=== PATIENT | male | born 1950 | race Caucasian/White ===

== ENCOUNTER 2017-11-16 17:24 | Inpatient (IN) | payer OTHER ==
--- NOTE | 2017-11-16 17:44 | EDPHY ---
H & P Time Seen by Provider: 11/16/17 17:32 HPI/ROS: CHIEF COMPLAINT: Fall HISTORY OF PRESENT ILLNESS: The patient is a 67-year-old male with a history of Parkinson's disease who presents emergency department after having a mechanical fall. The patient was standing on a scale in his kitchen. He stepped off falling to his right side. He struck his head on the counter. He did not lose consciousness. He has mild headache. Patient also struck his right upper leg and hip. Now has moderate to severe pain in his right upper leg. It is worse with movement. He initially had some numbness in his foot but that is resolved. Patient denies chest pain or shortness of breath. No back pain. No abdominal pain. No nausea or vomiting. REVIEW OF SYSTEMS: My complete review of systems is negative except as mentioned in the HPI. Past Medical/Surgical History: Includes Parkinson's disease and hypertension Past surgical history: Hernia repair Social history: The patient drinks alcohol occasionally. No tobacco use Smoking Status: Never smoked Physical Exam: Vitals noted GENERAL: Well-appearing, in no acute distress, alert. HEAD: Patient has a small abrasion and swelling on the right lateral aspect of his head. No crepitus. EYES: PERRLA, EOMI, normal to inspection. ENT: Airway intact, no dental or oral injury, no malocclusion, no hemotympanum , normal external examination. NECK: The trachea is midline. There is no crepitus. The C-spine is nontender. NEXUS criteria is negative (no midline tenderness, no distracting injury, no altered mental status, no recent alcohol use, no focal neurologic deficit). RESPIRATORY: Clear to auscultation bilaterally, no rales, rhonchi or wheezing. There is no crepitus or palpable rib fractures. CVS: Regular rate and rhythm, no rubs, murmurs, or gallops. ABDOMEN: Soft, nontender, nondistended, normal bowel sounds, no bruising or abrasions. Pelvis: Stable. No tenderness palpation. Hips full range of motion. BACK: Normal to inspection, no spinal tenderness, no spinal step off, no notable bruising or abrasions. SKIN: Normal color, warm, dry. No pallor or diaphoresis. EXTREMITIES: Right upper extremity: Atraumatic. No visible signs of trauma. No tenderness palpation. Neurovascular intact distally. Left upper extremity: Atraumatic. No visible signs of trauma. No tenderness palpation. Neurovascular intact distally. Right lower extremity: Patient's hip is in slight flexion with a pillow. Patient has no significant bony tenderness palpation. However, the patient does have disc comfort with rotation of his hip medial and laterally. Patient is neurovascular intact distally. Left lower extremity: Atraumatic. No visible signs of trauma. No tenderness palpation. Neurovascular intact distally. Atraumatic, neurovascularly intact distally in all extremities, pelvis is stable , hips with full range of motion, moves all extremities freely. NEURO/PSYCH: Alert and oriented x 3, GCS 15, flat affect, normal motor sensory exam. Constitutional: Initial Vital Signs Temperature (C) 36.6 C 11/16/17 17:37 Heart Rate 82 11/16/17 17:37 Respiratory Rate 18 11/16/17 17:37 Blood Pressure 153/91 H 11/16/17 17:37 O2 Sat (%) 97 11/16/17 17:37 O2 Delivery Mode Room Air Allergies/Adverse Reactions: No Known Allergies Allergy (Verified 11/16/17 17:36) Home Medications: Medication Instructions Recorded Amlodipine Besylate 5 mg PO DAILY 07/27/11 Aspirin [Aspirin 81mg (*)] 81 mg PO DAILY 11/16/17 Carbidopa/Levodopa 1 each PO TID 11/16/17 [Carbidopa-Levodopa 25-100 Tab] rOPINIRole HCL [Requip] 0.25 mg PO AC 11/16/17 Medical Decision Making - Diagnostics Imaging Results: Imaging Impressions Femur X-Ray 11/16/17 17:45 Impression: Displaced right femoral neck fracture. Right Femur, Two Views History: Pain. Fall. Findings: No other findings for right femoral fracture aside from the displaced right femoral neck fracture seen on the right hip images. Mild underlying degenerative change in the right knee. Impression: Displaced right femoral neck fracture seen on the right hip x-ray. No other findings for fracture in the right femur. Hip X-Ray 11/16/17 17:45 Impression: Displaced right femoral neck fracture. Right Femur, Two Views History: Pain. Fall. Findings: No other findings for right femoral fracture aside from the displaced right femoral neck fracture seen on the right hip images. Mild underlying degenerative change in the right knee. Impression: Displaced right femoral neck fracture seen on the right hip x-ray. No other findings for fracture in the right femur. Chest X-Ray 11/16/17 17:56 Impression: No evidence for acute cardiopulmonary abnormality. ED Course/Re-evaluation: In the emergency department I discussed possible etiologies with the patient. Answered all his questions. An IV was placed. Laboratory studies were obtained. Head CT was ordered. Patient also had a right hip x-ray. Right hip: Patient has a femoral neck fracture on the right. This is displaced. Chest x-ray: No acute disease noted. EKG shows normal sinus rhythm, normal rate, normal axis, normal intervals. There are no ST or T-wave abnormalities. EKG is normal as interpreted by me. CBC chemistry unremarkable. I discussed the case with Dr. Hayden from Orthopedics. He will arrange treatment the patient's femur fracture. I discussed case with Dr. Schmid. He will admit the patient. I discussed the plan with the patient. I answered all his questions. He is aware the plan. He was quite comfortable during his stay in the emergency department. He did not want any pain medication. Differential Diagnosis: My differential includes but is not limited to head contusion, subarachnoid hemorrhage, subdural hematoma, epidural hematoma, spinal injury, right hip fracture, hip dislocation, femur fracture - Data Points Laboratory Results: Laboratory Results 11/16/17 17:47 11/16/17 17:47 11/16/17 11/16/17 11/16/17 17:47 17:47 17:47 WBC 6.30 10^3/uL 10^3/uL (3.80-9.50) RBC 4.65 10^6/uL 10^6/uL (4.40-6.38) Hgb 15.0 g/dL g/dL (13.7-17.5) Hct 43.2 % % (40.0-51.0) MCV 92.9 fL fL (81.5-99.8) MCH 32.3 pg pg (27.9-34.1) MCHC 34.7 g/dL g/dL (32.4-36.7) RDW 12.8 % % (11.5-15.2) Plt Count 250 10^3/uL 10^3/uL (150-400) MPV 9.3 fL fL (8.7-11.7) Neut % (Auto) 67.3 % % (39.3-74.2) Lymph % (Auto) 17.1 % % (15.0-45.0) [place] % (Auto) 10.0 % % (4.5-13.0) Eos % (Auto) 3.7 % % (0.6-7.6) Baso % (Auto) 1.1 % % (0.3-1.7) Nucleat RBC Rel Count 0.0 % % (0.0-0.2) Absolute Neuts (auto) 4.24 10^3/uL 10^3/uL (1.70-6.50) Absolute Lymphs (auto) 1.08 10^3/uL 10^3/uL (1.00-3.00) Absolute Monos (auto) 0.63 10^3/uL 10^3/uL (0.30-0.80) Absolute Eos (auto) 0.23 10^3/uL 10^3/uL (0.03-0.40) Absolute Basos (auto) 0.07 10^3/uL 10^3/uL (0.02-0.10) Absolute Nucleated RBC 0.00 10^3/uL 10^3/uL (0-0.01) Immature Gran % 0.8 % % (0.0-1.1) Immature Gran # 0.05 10^3/uL 10^3/uL (0.00-0.10) PT 13.3 SEC SEC (12.0-15.0) INR 0.99 (0.83-1.16) APTT 32.9 SEC SEC (23.0-38.0) Sodium 136 mEq/L mEq/L (135-145) Potassium 4.2 mEq/L mEq/L (3.5-5.2) Chloride 102 mEq/L mEq/L (97-110) Carbon Dioxide 25 mEq/l mEq/l (22-31) Anion Gap 9 mEq/L mEq/L (8-16) BUN 21 mg/dL mg/dL (7-23) Creatinine 0.7 mg/dL mg/dL (0.7-1.3) Estimated GFR > 60 Glucose 97 mg/dL mg/dL (70-100) Calcium 9.1 mg/dL mg/dL (8.5-10.4) Medications Given: Discontinued Medications Sodium Chloride (Ns) 500 mls @ 0 mls/hr IV EDNOW ONE; Wide Open PRN Reason: Protocol Stop: 11/16/17 18:45 Last Admin: 11/16/17 18:47 Dose: 500 mls Departure - Departure Disposition: [facility] In[facility] Acute Clinical Impression: Femoral neck fracture Qualifiers: Encounter type: initial encounter Fracture type: closed Laterality: right Qualified Code(s): S72.001A - Fracture of unspecified part of neck of right femur, initial encounter for closed fracture Condition: Good
[2017-11-16] MEDS ORDERED: NS 500 ML IV ONE (18:44)
[2017-11-16 19:06] LABS: PLATELET COUNT 250 10^3/uL (150-400)
--- NOTE | 2017-11-16 19:11 | CPEKG ---
Heart Rate: 72 RR Interval: 833 P-R Interval: 172 QRSD Interval: 92 QT Interval: 388 QTC Interval: 425 P Tryon: 86 QRS Tryon: 73 T Wave Tryon: 83 EKG Severity - NORMAL ECG - EKG Impression: SINUS RHYTHM Electronically Signed By: Soraya Gr 16-Nov-2017 22:49:43
[2017-11-16 19:14] LABS: INR 0.99 (0.83-1.16); PROTIME(PATIENT) 13.3 SEC (12.0-15.0)
[2017-11-16] MEDS ORDERED: DEXAMETHASONE 4 MG/ML VIAL IVP ONE (20:40)
[2017-11-16] MEDS ORDERED: TRANEXAMIC ACID 3,000 MG in NS (SYRINGE) 50 ML IRR ONE (20:40)
[2017-11-16] MEDS ORDERED: ceFAZolin 2 GM/SWFI 2 GM/20 ML SYR IVP ONE (20:40)
[2017-11-16] MEDS ORDERED: ROPIVACAINE 0.2% 80 MG, EPINEPHrine 0.2 MG, KETOROLAC TROMETHAMINE 30 MG in SYRINGE 0 ML IU ONE (20:40)
[2017-11-16] MEDS ORDERED: CARBIDOPA/LEVODOPA 25 MG/100 MG TAB PO SCH (22:00)
--- NOTE | 2017-11-16 22:01 | PDGENHP ---
History and Physical History and Physical: CC:RIGHT HIP PAIN AFTER FALL HISTORY: This gentleman comes to the ER by ambulance after a fall today resulting in in bit ability to stand or walk with severe left hip pain. He has Parkinson's disease and has fallen in the past. He tells me that he was trying to weigh himself on a scale today when he tripped over the scale fell landing on his left side. He since any a severe pain in his left hip. There is no pain anywhere else and he does not think he has injured anything else. He did not hit his head lose consciousness. There is no lightheadedness dizziness chest pain palpitations shortness of breath fever symptom or other acute symptom of illness. Patient has no prior fractures other than an arm fracture when he was 11 years old. He does have Parkinson's disease and says that he has noticed gradual progression of trouble with balance and recently has started falling frequently. He has had 3 fairly recent falls prior to today's episode. He does not use a cane or a walker. He says he knows he should be doing something more to protect himself but has been lazy about it. He is on medications for Parkinson's and sees a neurologist within the [facility] system. No recent changes in his medicines. ROS: A COMPREHENSIVE 10 SYSTEM REVIEW REVEALED NO OTHER SIGNIFICANT FINDINGS. THIS DID INCLUDE A STANDARD PERTINENT REVIEW OF ISSUES IMPORTANT FOR PREOPERATIVE HIM PRE ANESTHESIA RISK ASSESSMENT. 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 I HAVE REVIEWED THE LIST AND ORDERED APPROPRIATE MEDICINES. 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 in the ER EXAMINATION: GENERAL: ALERT, ORIENTED, GOOD MENTATION, APPEARS UNCOMFORTABLE BUT OVERALL REASONABLY RELAXED, HE HAS REMARKABLY DECREASED LEAN MUSCLE MASS AND SUBCUTANEOUS FAT, CONSISTENT WITH AT LEAST A MODERATE PROTEIN CALORIE MALNUTRITION, BMI LISTED 20 IN THE CHART SO FAR SKIN: WARM, DRY, GOOD COLOR, NO RASH HEENT: NORMAL NECK: NO MASS OR JVD RESPS: RELAXED LUNGS: CLEAR BREATH SOUNDS HEART: REGULAR, NO MURMUR ABDOMEN: SOFT, NONDISTENDED, NONTENDER, +BS, NO MASS, HIS BLADDER IS DISTENDED WHICH HE SAYS IS COMMON FOR HIM UPPER EXTREMITIES: NORMAL LOWER EXTREMITIES: NO EDEMA, WARM NO BLEEDING OR BRUISING NEUROLOGIC: STRENGTH OR OVERALL GOOD OTHER THAN NOT TESTED IN THE RIGHT LEG, HE DOES MOVE HIS FOOT WITH GOOD STRENGTH NORMAL SPEECH/LANGUAGE, 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, NO FOCAL WEAKNESS; DOES HAVE A PARKINSONIAN TREMOR IV SITE: LOOKS NORMAL LABORATORY DATA: Unremarkable CBC Chem panel and coagulation studies RADIOLOGY STUDIES: I reviewed chest x-ray, hip and femur x-rays done in the ER this evening and my interpretation of the images: Probably some hyper for expansion of his lungs consistent with possible COPD or similar process, nothing acute in the chest; obvious displaced right femoral neck fracture, no other fractures 12 LEAD EKG: Sinus rhythm with otherwise normal EKG ASSESSMENT: -acute femoral neck fracture after fall -gait instability due to Parkinsons with several recent falls -hypertension on medication, with very mild elevated blood pressure at this time -protein calorie malnutrition at least moderate -preoperative anesthesia and surgery risk assessment: At this time there are no issues that would require a delay in surgery or necessitate further diagnostic investigation or change in management before proceeding with surgery. PLANS: -admission to Orthopedics unit -NPO on IV hydration with anticipation of surgery tomorrow -pain management -will continue his Parkinson's medicines and his amlodipine, but will not give him aspirin at this time in the absence of specific indications -for the moment DVT prophylaxis is with 1 dose of subcu heparin tonight, then wait until after surgery we can begin Lovenox -fall risk precautions, physical occupational therapy -anticipate SNF within a few days after surgery I reviewed the patient's case in detail with Dr. Soraya Gr
[2017-11-16] MEDS ORDERED: ONDANSETRON 4 MG/2 ML VIAL IVP PRN (22:52)
[2017-11-16] MEDS ORDERED: OXYCODONE/APAP 5/325 TAB PO PRN (22:52)
[2017-11-16] MEDS ORDERED: ZOLPIDEM TARTRATE 5 MG TAB PO PRN (22:52)
[2017-11-16] MEDS ORDERED: ONDANSETRON DISINTEGRATING 4 MG TAB PO PRN (22:52)
[2017-11-16] MEDS ORDERED: ACETAMINOPHEN 325 MG TAB PO PRN (22:52)
[2017-11-16] MEDS ORDERED: HYDROmorphone HCL/NS 0.5 MG/ML SYR IVP PRN (22:52)
[2017-11-16] MEDS ORDERED: HEPARIN 5,000 UNIT/0.5 ML SYR SC ONE (22:56)
[2017-11-16] MEDS ORDERED: NS 1,000 ML IV SCH (23:00)
[2017-11-16] MEDS: CARBIDOPA/LEVODOPA 25 MG/100 MG TAB PO SCH (23:12)
[2017-11-17] MEDS ORDERED: TRANEXAMIC ACID 3,000 MG/50 ML BAG IRR ONE (05:20)
[2017-11-17 05:21] LABS: PLATELET COUNT 235 10^3/uL (150-400)
[2017-11-17 05:35] LABS: INR 1.08 (0.83-1.16); PROTIME(PATIENT) 14.2 SEC (12.0-15.0)
--- NOTE | 2017-11-17 05:59 | PDANEPAE ---
ANE History of Present Illness Fall with hip fracture ANE Past Medical History - Cardiovascular History Hx Hypertension: Yes - Pulmonary History Hx Oxygen in Use at Home: No Hx Sleep Apnea: No Sleep Apnea Screening Result - Last Documented: Positive - Endocrine History Hx Diabetes: No - Neurological & Psychiatric Hx Neurological / Psychiatric History Comment: Parkinsons ANE Review of Systems Review of Systems: ANE Patient History - Allergies Allergies/Adverse Reactions: No Known Allergies Allergy (Verified 11/16/17 17:36) - Home Medications Home Medications: Amlodipine Besylate 5 mg PO DAILY 07/27/11 [Last Taken 11/16/17] Aspirin [Aspirin 81mg (*)] 81 mg PO DAILY 11/16/17 [Last Taken Unknown] Carbidopa/Levodopa [Carbidopa-Levodopa 25-100 Tab] 1 each PO TID 11/16/17 [Last Taken 11/16/17 12:00] rOPINIRole HCL [Requip] 0.25 mg PO TID 11/16/17 [Last Taken 11/16/17 11:30] - NPO status NPO Since - Liquids (Date): 11/17/17 NPO Since - Liquids (Time): 00:00 NPO Since - Solids (Date): 11/17/17 NPO Since - Solids (Time): 00:00 - Anes Hx Anes Hx: no prior problems - Smoking Hx Smoking Status: Never smoked ANE Labs/Vital Signs - Labs Result Diagrams: 11/17/17 04:30 11/17/17 04:30 - Vital Signs Blood Pressure: 128/83 Heart Rate: 78 Respiratory Rate: 16 O2 Sat (%): 97 Height: 177.8 cm Weight: 65.771 kg ANE Physical Exam - Airway Neck exam: decreased ROM Mallampati Score: Class 2 Mouth exam: poor dentition - Pulmonary Pulmonary: no respiratory distress - Cardiovascular Cardiovascular: regular rate and rhythym - ASA Status ASA Status: III ANE Anesthesia Plan Anesthesia Plan: spinal
[2017-11-17] MEDS ORDERED: DEXAMETHASONE 4 MG/ML VIAL IVP ONE (06:00)
[2017-11-17] MEDS ORDERED: TRANEXAMIC ACID 3,000 MG in NS (SYRINGE) 50 ML IRR ONE (06:00)
[2017-11-17] MEDS ORDERED: ROPIVACAINE 0.2% 80 MG, EPINEPHrine 0.2 MG, KETOROLAC TROMETHAMINE 30 MG in SYRINGE 0 ML IU ONE (06:00)
[2017-11-17] MEDS ORDERED: ceFAZolin 2 GM/SWFI 2 GM/20 ML SYR IVP ONE (06:00)
[2017-11-17] MEDS ORDERED: LIDOCAINE 2% 5 ML SDV ONE (06:11)
[2017-11-17] MEDS ORDERED: PROPOFOL/EMULSION 500 MG/50 ML BOTTLE IV ONE (06:11)
[2017-11-17] MEDS ORDERED: fentaNYL 100 MCG/2 ML INJ ONE ×2 (06:13→07:09)
[2017-11-17] MEDS ORDERED: ONDANSETRON 4 MG/2 ML VIAL ONE (07:11)
[2017-11-17] MEDS ORDERED: DEXAMETHASONE 4 MG/ML VIAL ONE (07:11)
[2017-11-17] MEDS ORDERED: ONDANSETRON 4 MG/2 ML VIAL IVP PRN (07:12)
[2017-11-17] MEDS ORDERED: NALOXONE HCL 0.4 MG/ML INJ IVP PRN (07:12)
[2017-11-17] MEDS ORDERED: fentaNYL 100 MCG/2 ML INJ IVP PRN (07:12)
[2017-11-17] MEDS ORDERED: HYDROmorphONE/DILAUDID 2 MG/ML INJ IVP PRN (07:12)
--- NOTE | 2017-11-17 07:44 | POSTANESTH ---
Post Anesthetic Evaluation Cardiovascular Status: Similar to Pre-Op Cond Respiratory Status: Similar to Pre-op Cond. Level of Consciousness/Mental Status: Mildly Sleepy, Arousable Pain Control: Adequate, Prn Tx Ordered Nausea/Vomiting Control: Adequate, Prn Tx Ordered Complications Possibly Related to Anesthesia: None Noted
[2017-11-17] MEDS ORDERED: PROMETHAZINE HCL 25 MG/ML INJ IVP PRN (07:45)
[2017-11-17] MEDS ORDERED: CYCLOBENZAPRINE 10 MG TAB PO PRN (07:45)
[2017-11-17] MEDS ORDERED: diphenhydrAMINE 25 MG CAP PO PRN (07:45)
[2017-11-17] MEDS ORDERED: POLYETHYLENE GLYCOL 3350 17 GM PKT PO PRN (07:45)
[2017-11-17] MEDS ORDERED: TEMAZEPAM 15 MG CAP PO PRN (07:45)
[2017-11-17] MEDS ORDERED: BISACODYL 10 MG SUPP PR PRN (07:45)
[2017-11-17] MEDS ORDERED: LACTULOSE 20 GM/30 ML UDCUP PO PRN (07:45)
[2017-11-17] MEDS ORDERED: PROMETHAZINE HCL 25 MG SUPPR PR PRN (07:45)
[2017-11-17] MEDS ORDERED: oxyCODONE IR 5 MG TAB PO PRN (07:45)
[2017-11-17] MEDS ORDERED: MAGNESIUM HYDROXIDE 30 ML UDCUP PO PRN (07:45)
[2017-11-17] MEDS ORDERED: METOCLOPRAMIDE 10 MG/2 ML VIAL IVP PRN (07:45)
[2017-11-17] MEDS ORDERED: DIPHENOXYLATE/ATROPINE LOMOTIL 1 TAB PO PRN (07:45)
--- NOTE | 2017-11-17 07:45 | POSTOPPROG ---
Post Op Note Date of Operation: 11/17/17 Surgeon: Sebastian Carrion Anesthesiologist: Keenan Pre-op Diagnosis: R displaced femoral neck fx Post-op Diagnosis: same Indication: Pain Procedure: R DAMIÁN Findings: femoral neck fx Inf/Abcess present in the surg proc area at time of surgery?: No EBL: [id number]
[2017-11-17] MEDS ORDERED: ENOXAPARIN 40 MG/0.4 ML SYR SC SCH (09:00)
[2017-11-17] MEDS: SENNOSIDES/DOCUSATE SODIUM TAB PO SCH ×2 (10:20→10:21)
[2017-11-17] MEDS: CARBIDOPA/LEVODOPA 25 MG/100 MG TAB PO SCH ×3 (10:20→20:32)
--- NOTE | 2017-11-17 11:36 | PDMN ---
Medical Necessity Medical necessity: Patient meets inpatient criteria per physician note and [facility] [place] ( R TKA after sustaining a R femoral neck fracture s/p fall; Medicare inpatient-only surgery.).
[2017-11-17] MEDS: LR 1,000 ML IV SCH ×3 (11:57→23:58)
[2017-11-17] MEDS: ACETAMINOPHEN 325 MG TAB PO SCH ×2 (11:57→18:26)
--- NOTE | 2017-11-17 14:27 | GOP ---
[f rep st] OPERATIVE REPORT DATE OF OPERATION: 11/16/2017 SURGEON: Anthony Carrion MD ANESTHESIA: LMA. PREOPERATIVE DIAGNOSIS: Right femoral neck fracture. POSTOPERATIVE DIAGNOSIS: Right femoral neck fracture. PROCEDURE PERFORMED: Right total hip arthroplasty with x-ray. FINDINGS: ESTIMATED BLOOD LOSS: 200 cc. INDICATIONS: The patient has progressively worsening arthritis of the hip which has failed medical management. The patient understands the treatment options including continued non-operative care and has selected surgical intervention. The patient has decided to undergo total hip arthroplasty via the direct anterior approach, understanding the risks of the procedure including , but not limited to, neurovascular injury, infection, persistent pain, component wear and loosening, deep venous thrombosis, pulmonary embolism, limb length inequality, hip instability (including dislocation), and intra-operative fractures. DESCRIPTION OF PROCEDURE: After proper identification of the patient including verification and marking the surgical site, the patient was brought to the operating room and placed in the supine position. All bony prominences were well padded. Anesthesia was induced without complication and intravenous prophylactic antibiotics were administered prior to skin incision. The operative leg was placed in the Trumpf Arch table extension and the well leg in a Yellofin leg portillo. The patient was prepped and draped in the usual sterile fashion. The C-arm was draped for intra-operative fluoroscopy to check acetabular position, femoral component position including leg length and femoral offset. Attention was then drawn to surgical exposure of the hip. An incision was made with a #10 Bard Cali blade starting 3 cm lateral and 3 cm distal to the anterior superior iliac spine measuring 8-10 cm and coursing distally toward the greater trochanter. The skin and subcutaneous tissues were divided sharply down to the fascia jono. The fascia jono was incised in line with the skin incision exposing the underlying tensor fascia jono muscle. The muscle was bluntly elevated from the fascia and the first extracapsular Cobra retractor was placed laterally at the junction of the superior femoral neck and greater trochanter. The lateral femoral circumflex vessels were identified, cauterized , and divided with the Aquamantys bipolar cautery. The deep investing fascia of the TFL was divided to allow proper mobilization of the muscle preventing damage during the retraction. The reflected head of the rectus femoris muscle was elevated off the anterior hip capsule and a medial Cobra retractor was placed just proximal to the lesser trochanter. The anterior capsulotomy was made sharply from the superolateral acetabulum to the saddle junction of the superior femoral neck and greater trochanter, then coursing inferomedial towards the lesser trochanter. The retractors were then placed in the intracapsular position for femoral neck osteotomy. Corresponding to pre-operative templating, the osteotomy was made with the oscillating saw carefully protecting the greater trochanter and soft tissues. The femoral head was removed from the acetabulum with a corkscrew and confirmed to be fractured The Arch table extension was then placed in 40 degrees external rotation. Attention was then drawn to the acetabular preparation. After placement of the anterior and posterior Cobra retractors outside the labrum and intracapsular, the circumferential labrum was removed sharply. The foveal contents were then removed and hemostasis obtained with cautery. The first reamer selected was sized using the removed femoral head. Reaming began with medialization and then commenced in 2 mm increments at 45 degrees of abduction and 15 degrees of anteversion using fluoroscopic navigation. Reaming ceased 1 mm less than the definitive acetabular component and corresponded to the pre-operative templating. The final acetabular component was inserted using fluoroscopy to achieve proper orientation yielding excellent purchase and stability in the acetabulum. The final acetabular liner was then placed and its seating confirmed. Attention was then turned to the femur. The Arch table extension was placed in extension and adduction, delivering the osteotomized femoral neck into the wound. A 2-pronged femoral elevator was placed at the calcar and another at the tip of the greater trochanter. The posterolateral capsule was released with cautery allowing mobilization of the femur lateral and anterior for preparation. The external rotators were visualized and preserved. A curette and rongeur were used to open the starting point for broaching. Serial broaching started with the #0 broach and ended with the broach that exhibited excellent fit in the proximal femur. A change in pitch during mallet strikes was accompanied by the inability to advance the broach any further. The trial reduction was performed and fluoroscopic navigation was utilized to check limb length. Adjustments were made to equalize limb length accordingly. After the final trials were accepted they were removed and the wound was copiously lavaged. The femoral component was seated to the same depth as the final broach and the femoral head was impacted onto the clean trunnion. The hip was then reduced for the final time and once more fluoroscopy was used to check that limb length equality was achieved. The wound was irrigated and closed in layers, the fascia jono with 2-0 Quill, the subcutaneous tissue with 2-0 Quill, and the skin with Dermabond. Sterile dressings were applied. Final sharps and sponge counts were accurate. The patient was then transferred to a hospital bed and brought to the recovery room in stable condition. IMPLANTS: Accolade II size 7 at 127. Acetabular component, a 54 mm Tritanium. The liner is a Trident X3, 36 mm. The head is a Biolox Delta, 36 mm -2.5. /[id number]/MODL MTDD
--- NOTE | 2017-11-17 14:42 | GCON ---
[f rep st] CONSULTATION ORTHOPEDIC CONSULTATION Consultation from the emergency department and hospitalist, Dr. Schmid, for a right hip fracture. HISTORY: Patient is a 67-year-old male with Parkinson disease who sustained a mechanical fall sustai avelina right displaced femoral neck fracture. He complains of pain in no other extremity. Bumped his head, has small headache but the CT scan was normal per the ER. Complains of pain just in the right groin area. Denies any numbness or tingling. PAST MEDICAL HISTORY: Significant for Parkinson and hypertension. MEDICATIONS: Please see medication list. PHYSICAL EXAMINATION: VITAL SIGNS: Stable. EXTREMITIES: Right lower extremity is shortened and ex ternally rotated. Pain with motion. He is grossly neurovascularly intact. X-rays are reviewed which show a displaced subcapital femoral neck fracture. ASSESSMENT AND PLAN: Patient is a 67-year-old gentleman with a right displaced femoral neck fracture . Discussed operative and nonoperative interventions with patient and recommend patient proceed with a right total hip arthroplasty. Risks and benefits were discussed with patient including bleeding, infection, damage to nerves and vessels, need for further surgery, risk of blood clots, blood clots c oming to his lungs, rare things like stroke, heart attack and as well as risks for dislocation, fracture and leg length discrepancy. Patient expressed understanding and informed consent was obtai celso, a signature was obtained from his as he was mildly lethargic and having difficulty with his Parkinson's signing the paper. We will proceed with operative fixation and be admitted to the [facility] service. /[id number]/MODL
[2017-11-17] MEDS: ceFAZolin 2 GM/SWFI 2 GM/20 ML SYR IVP SCH ×2 (15:06→22:47)
--- NOTE | 2017-11-17 16:21 | ASMTCMCOM ---
CM Note CM Note Notes: Pt admitted after fall and sustained femur fracture. Reviewed chart and discussed w/RN. PT recommending SNF. I met w/pt and his , Ruthie. They are both in agreement w/SNF, have [facility] insurance. Discussed SNF options; first choice is [facility] (even though not [facility] contracted facility this is much closer for to drive to each day from [place] where they live), second choice [facility]. Referrals sent to both facilities. Notified Loretta escalona/Jacob who has given authorization for him to go to [facility] b/c of location/ proximity to pt and 's home. Notified Lulu with [facility] authorization and they will have bed available tomorrow. PASRR complete and sent w/referral. CM will follow. Date Signed: 11/17/2017 04:20 PM Electronically Signed By:Nayana Ram RN
--- NOTE | 2017-11-17 18:45 | HOSPPROG ---
Hospitalist Progress Note Assessment/Plan: 67 yo M with hx of PD s/p mechanical fall with femoral neck fx # femoral neck fx : now s/p DAMIÁN, pain relatively well controlled, working with pt/ot, will need rehab after hospitalization given underlying PD # fall: mechnaical in nature, has not had hx of frequent falls prior to this # PD: sxs are relatively mild currently, again now with new injury as above suspect he will require SNF # pain: well controlled on current regimen # IP status Patient new to my care. Old records reviewed and summarized as above. Subjective: no acute overnight events, pain has been controlled Objective: Vital Signs Temp Pulse Resp BP Pulse Ox 37.2 C 84 16 128/80 H 97 11/17/17 16:00 11/17/17 16:51 11/17/17 16:00 11/17/17 16:51 11/17/17 16:00 Laboratory Results 11/17/17 04:30 11/17/17 04:30 11/16/17 11/17/17 11/18/17 05:59 05:59 05:59 Intake Total 222 1380 Output Total 1300 300 Balance -1078 1080 PT 14.2 SEC (12.0-15.0) 11/17/17 04:30 INR 1.08 (0.83-1.16) 11/17/17 04:30 awake alert nad anicteric op clear rrr no mrg cta b soft nt nd dressing over right hip cdi no cce oriented appopriate - Time Spent With Patient Time Spent with Patient: greater than 35 minutes Time Spent with Patient: Greater than 35 minutes spent on this patients care, greater than 50% of time spent counseling, educating, and coordinating care regarding the above mentioned plan. ICD10 Worksheet Patient Problems: Problems Problem Status Onset Femoral neck fracture Acute
[2017-11-17] MEDS: FAMOTIDINE 20 MG TAB PO SCH (20:02)
[2017-11-17] MEDS: ASPIRIN 81 MG CHEWABLE TAB PO SCH (20:02)
[2017-11-18] MEDS: ACETAMINOPHEN 325 MG TAB PO SCH ×5 (00:35→23:26)
[2017-11-18] MEDS: SENNOSIDES/DOCUSATE SODIUM TAB PO SCH ×2 (08:26→21:06)
[2017-11-18] MEDS: ASPIRIN 81 MG CHEWABLE TAB PO SCH ×2 (08:27→21:06)
[2017-11-18] MEDS: FAMOTIDINE 20 MG TAB PO SCH ×2 (08:27→21:06)
[2017-11-18] MEDS: CARBIDOPA/LEVODOPA 25 MG/100 MG TAB PO SCH ×3 (08:29→21:06)
--- NOTE | 2017-11-18 09:38 | HOSPPROG ---
Hospitalist Progress Note Assessment/Plan: 67 yo M with hx of PD s/p mechanical fall with femoral neck fx # femoral neck fx : now s/p DAMIÁN, pain relatively well controlled, working with pt/ot, will need rehab after hospitalization given underlying PD # fall: mechnaical in nature, has not had hx of frequent falls prior to this, as above # acute encephalopathy: overnight patient confused, noted to be seeing his cat which was not here and calling his asking to be picked up, improved this am. All in all consistent with sundowning/acute delirium in setting of pain meds /recent surgery and underlying PD. Reassured and patient, will continue to work on redirecting and keeping night/day changes consistent. # PD: sxs are relatively mild currently, again now with new injury as above suspect he will require SNF # pain: well controlled on current regimen # IP status--will likely dc to SNF in am so long as no significant worsening delirium overnight Subjective: overnight patient noted to be confused, hallucinating, calling his confused, today back to baseline, was walking with walker with PT Objective: Vital Signs Temp Pulse Resp BP Pulse Ox 36.9 C 90 16 147/82 H 96 11/18/17 07:23 11/18/17 07:23 11/18/17 07:23 11/18/17 07:23 11/18/17 07:23 Laboratory Results 11/18/17 04:00 11/17/17 04:30 11/17/17 11/18/17 11/19/17 05:59 05:59 05:59 Intake Total 222 2998 Output Total 1300 1150 Balance -1078 1848 PT 14.2 SEC (12.0-15.0) 11/17/17 04:30 INR 1.08 (0.83-1.16) 11/17/17 04:30 awake alert nad anicteric op clear rrr no mrg cta b soft nt nd dressing over right hip cdi no cce oriented appopriate - Time Spent With Patient Time Spent with Patient: greater than 35 minutes Time Spent with Patient: Greater than 35 minutes spent on this patients care, greater than 50% of time spent counseling, educating, and coordinating care regarding the above mentioned plan. ICD10 Worksheet Patient Problems: Problems Problem Status Onset Femoral neck fracture Acute
--- NOTE | 2017-11-18 21:28 | SOAPPROG ---
SOAP Progress Note Assessment/Plan: Assessment: s/p R DAMIÁN for femoral neck fx POD 1 doing well pain well controlled NVI dressing dry ASA for VTE, but will defer to hospitalist WBAT with walker dispo per hospitalist likely SNF Plan: 11/18/17 21:26 Objective: Vital Signs Temp Pulse Resp BP Pulse Ox 36.6 C 95 16 131/77 H 96 11/18/17 16:00 11/18/17 16:00 11/18/17 16:00 11/18/17 16:00 11/18/17 16:00 Laboratory Results 11/18/17 04:00 11/17/17 04:30 11/17/17 11/18/17 11/19/17 05:59 05:59 05:59 Intake Total 222 2998 Output Total 1300 1150 700 Balance -1078 1848 -700 PT 14.2 SEC (12.0-15.0) 11/17/17 04:30 INR 1.08 (0.83-1.16) 11/17/17 04:30 ICD10 Worksheet Patient Problems: Problems Problem Status Onset Femoral neck fracture Acute
[2017-11-19] MEDS: ACETAMINOPHEN 325 MG TAB PO SCH ×4 (06:21→23:58)
[2017-11-19] MEDS: ASPIRIN 81 MG CHEWABLE TAB PO SCH (09:17)
[2017-11-19] MEDS: SENNOSIDES/DOCUSATE SODIUM TAB PO SCH ×2 (09:18→20:39)
[2017-11-19] MEDS: CARBIDOPA/LEVODOPA 25 MG/100 MG TAB PO SCH ×3 (09:18→20:39)
[2017-11-19] MEDS: FAMOTIDINE 20 MG TAB PO SCH ×2 (09:18→20:39)
--- NOTE | 2017-11-19 16:19 | HOSPPROG ---
Hospitalist Progress Note Assessment/Plan: new pt encounter 67 yo M with hx of PD s/p mechanical fall with femoral neck fx # femoral neck fx : now s/p DAMIÁN, pain relatively well controlled, working with pt/ot, will need rehab after hospitalization given underlying PD # fall: mechanical in nature, has not had hx of frequent falls prior to this, as above # acute encephalopathy: -likely delirium -improving -avoid meds which can contribute. Has not received Dilaudid or Ambien. - Reassured and patient, will continue to work on redirecting and keeping night/day changes consistent. # PD: sxs are relatively mild currently, again now with new injury as above suspect he will require SNF # pain: well controlled on current regimen #Urinary retention: -start Flomax -remove Rosario tomorrow # IP status--will likely dc to SNF in am so long as no significant worsening delirium overnight -Change DVT proph to Lovenox, Stop Aspirin. cont for 3 weeks, can restart Aspirin at that time -labs in a.m. -d/w pt, nurse, and pt's at bedside. Subjective: was confused overnight. appears to be at baseline currently. no cp or sob. no n/v Objective: Vital Signs Temp Pulse Resp BP Pulse Ox 36.9 C 86 16 120/70 98 11/19/17 15:36 11/19/17 15:36 11/19/17 15:36 11/19/17 15:36 11/19/17 15:36 Laboratory Results 11/19/17 04:15 11/17/17 04:30 11/18/17 11/19/17 11/20/17 05:59 05:59 05:59 Intake Total 2998 150 500 Output Total 1150 1600 500 Balance 1848 -1450 0 PT 14.2 SEC (12.0-15.0) 11/17/17 04:30 INR 1.08 (0.83-1.16) 11/17/17 04:30 - Physical Exam Constitutional: no apparent distress, appears nourished Eyes: PERRL, EOMI Ears, Nose, Mouth, Throat: moist mucous membranes, hearing normal Cardiovascular: regular rate and rhythym, No edema Respiratory: no respiratory distress, no rales or rhonchi Gastrointestinal: normoactive bowel sounds, soft, non-tender abdomen Genitourinary: no bladder fullness Skin: warm Neurologic: No AAOx3 Psychiatric: interacting appropriately, encephalopathic Lymph, Heme, Immunologic: No petechiae ICD10 Worksheet Patient Problems: Problems Problem Status Onset Femoral neck fracture Acute
[2017-11-19] MEDS: ENOXAPARIN 40 MG/0.4 ML SYR SC SCH (18:17)
[2017-11-19] MEDS: TAMSULOSIN HCL 0.4 MG CAP PO SCH (18:20)
[2017-11-20 05:23] LABS: PLATELET COUNT 200 10^3/uL (150-400)
[2017-11-20] MEDS: ACETAMINOPHEN 325 MG TAB PO SCH ×3 (06:16→18:31)
[2017-11-20] MEDS: SENNOSIDES/DOCUSATE SODIUM TAB PO SCH ×2 (08:03→22:01)
[2017-11-20] MEDS: FAMOTIDINE 20 MG TAB PO SCH ×2 (08:05→22:02)
[2017-11-20] MEDS: TAMSULOSIN HCL 0.4 MG CAP PO SCH (08:05)
[2017-11-20] MEDS: CARBIDOPA/LEVODOPA 25 MG/100 MG TAB PO SCH ×3 (08:06→22:02)
[2017-11-20] MEDS: ENOXAPARIN 40 MG/0.4 ML SYR SC SCH (08:06)
--- NOTE | 2017-11-20 14:38 | HOSPPROG ---
Hospitalist Progress Note Assessment/Plan: 67 yo M with hx of PD s/p mechanical fall with femoral neck fx. His hospitalization has been complicated by intermittent confusion. I have evaluated the pt on 2 occasions, including today, and he shows no signs of confusion and is able to carry and hold an intelligent conversation. He has a negative ROS including no urinary symptoms. PO intake has been adequate and he has no signs of dehydration. He has had a torres in and attempt to remove yesterday was unsuccessful. It was replaced. It was removed this morning and he has not peed as of yet. In addition, he has not had a BM in several day and this is a requirement for transfer to rehab. Family is requesting he not be discharged today. Plan: -Bladder scan to determine if retaining urine -cont with Flomax. Would like to avoid reinsertion if possible -I will provide IVF x 1 liter -Na has decreased, he looks Euvolemic, will recheck in a.m.. Check urine studies. He does not have a hx of chronic hyponatremia -avoid narcotics which he has not required -check UA -Schedule Mirilax BID until BM -Plan discussed with pt, nurse, and CM # femoral neck fx : now s/p DAMIÁN, pain relatively well controlled, working with pt/ot, will need rehab after hospitalization given underlying PD # fall: mechanical in nature # acute encephalopathy: -likely delirium -intermittent -avoid meds which can contribute. Has not received Dilaudid or Ambien. # PD: sxs are relatively mild currently, again now with new injury as above suspect he will require SNF # pain: well controlled on current regimen #Urinary retention: -cont Flomax -avoid Torres if possible # IP status--d/c soon -cont Lovenox for 3 weeks, can restart Aspirin at that time -labs in a.m. Subjective: no cp, sob, n/v, pain, confusion. Able to articulate why he is here and what his hospital course has been like. Is able to tell me how he fell and how it led to a right hip injury. Family is reporting confusion Objective: Vital Signs Temp Pulse Resp BP Pulse Ox 36.9 C 75 16 117/59 L 96 11/20/17 08:00 11/20/17 08:00 11/20/17 08:00 11/20/17 08:03 11/20/17 08:00 Laboratory Results 11/20/17 04:25 11/20/17 04:25 11/19/17 11/20/17 11/21/17 05:59 05:59 05:59 Intake Total 150 600 Output Total 1600 1500 Balance -1450 -900 PT 14.2 SEC (12.0-15.0) 11/17/17 04:30 INR 1.08 (0.83-1.16) 11/17/17 04:30 - Physical Exam Constitutional: no apparent distress Eyes: PERRL, EOMI Ears, Nose, Mouth, Throat: moist mucous membranes Cardiovascular: regular rate and rhythym, No edema Respiratory: no respiratory distress, no rales or rhonchi, clear to auscultation Gastrointestinal: normoactive bowel sounds, soft, non-tender abdomen Skin: warm Musculoskeletal: No generalized weakness Neurologic: AAOx3 Psychiatric: interacting appropriately, not anxious, not encephalopathic Lymph, Heme, Immunologic: No petechiae ICD10 Worksheet Patient Problems: Problems Problem Status Onset Femoral neck fracture Acute
[2017-11-20] MEDS ORDERED: NS 1,000 ML IV SCH (14:45)
[2017-11-20] MEDS: POLYETHYLENE GLYCOL 3350 17 GM PKT PO SCH (15:41)
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
[2017-11-21] MEDS: ACETAMINOPHEN 325 MG TAB PO SCH ×3 (00:36→12:15)
[2017-11-21] MEDS: SENNOSIDES/DOCUSATE SODIUM TAB PO SCH (09:35)
[2017-11-21] MEDS: CARBIDOPA/LEVODOPA 25 MG/100 MG TAB PO SCH ×2 (09:35→16:04)
[2017-11-21] MEDS: TAMSULOSIN HCL 0.4 MG CAP PO SCH (09:35)
[2017-11-21] MEDS: FAMOTIDINE 20 MG TAB PO SCH (09:35)
[2017-11-21] MEDS: POLYETHYLENE GLYCOL 3350 17 GM PKT PO SCH (09:37)
[2017-11-21] MEDS: ENOXAPARIN 40 MG/0.4 ML SYR SC SCH (09:40)
--- NOTE | 2017-11-21 14:16 | PDDCSUM ---
Discharge Summary Discharge Summary: 67 yo M with hx of PD s/p mechanical fall with femoral neck fx. He had surgical repair per Ortho and has done well. He is being discharged to [facility] for further rehab. Rosario has been removed and he is voiding freely. He has had multiple BM's. Pain has been well controlled. He has not needed narcotics lately. He has been working with PT. His hospitalization has been complicated by intermittent confusion since surgery. I have evaluated the pt on 3 occasions, including today, and he shows no signs of confusion and is able to carry and hold an intelligent conversation. Per nursing his confusion is present at night and in the morning after waking up. We checked a UA and this was negative. He has no resp symptom. He has not had a fever. He reports feeling ok. He has no new focal neurological deficits. He is not on narcotic or ambien. He does have a hx of Parkinsons and is on his home meds and tolerating well. He will f/u with his PCP in one week. F/U with ortho per their arrangement. DDX: # femoral neck fx : now s/p DAMIÁN, pain relatively well controlled, working with pt/ot, will need rehab after hospitalization given underlying PD # fall: mechanical in nature # acute encephalopathy: -likely delirium -intermittent -avoid meds which can contribute. Has not received Dilaudid or Ambien. # PD: sxs are relatively mild currently, again now with new injury as above suspect he will require SNF # pain: well controlled on current regimen #Urinary retention: -cont Flomax which was started during this hospitalization Meds: See med rec PE: NAD ALERT/AWAKE/ORIENTED RRR CTAB NO EDEMA TOTAL TIME SPENT ON D/C is 40 mins including discussion with the nurse, the pt, and his . All are in agreement with the plan to discharge.
--- NOTE | 2017-11-21 14:17 | PDIAF ---
- Diagnosis Diagnosis: hip fracture, s/p repair Code Status: Full Code - Medication Management Discharge Medications: Medications to Continue on Transfer Amlodipine Besylate 5 mg PO DAILY 07/27/11 [Last Taken 11/16/17] Carbidopa/Levodopa [Carbidopa-Levodopa 25-100 Tab] 1 each PO TID 11/16/17 [Last Taken 11/16/17 12:00] rOPINIRole HCL [Requip 0.25mg (RX)] 0.25 mg PO TID 11/16/17 [Last Taken 11:30] Enoxaparin [Lovenox 40 MG (*)] 40 mg SC DAILY #16 syr 11/21/17 [Last Taken Unknown] Tamsulosin HCl [Flomax 0.4 MG (*)] 0.4 mg PO DAILY #30 cap 11/21/17 [Last Taken Unknown] Discharge Medications: Refer to the Discharge Home Medication list for PRN reason. - Orders Services needed: Physical Therapy, Occupational Therapy Diet Recommendation: no restrictions on diet Diet Texture: Regular Texture Diet Additional Instructions: Joint Protocol-Hip Replacement Follow up with Dr. Lang office as scheduled After surgery instructions: Take Aspirin 81mg by mouth morning and evening for 4 weeks (helps to prevent blood clots) Wear thigh high DANIE hose on both legs during the daytime for 2 weeks (helps to prevent blood clots and decrease swelling in the surgical leg). It is ok to remove DANIE hose at night time to give your legs a break. It is common for swelling and bruising to occur in the entire surgical leg even extending to the foot, if concerned call Dr. Rascon office [phone] Weight bearing as tolerated Use a walker for 7-14 days Do exercises in the book 2-3 times a day Ice at least 3-5 times a day for 30 minutes each time, if not more often. ~~If you have further questions that are not addressed here, please look at the information packet handed to you at the preop appointment. ~Most will be answered on the FAQs, after surgery instructions and incision care pages. ~You may also call Dr. Precious kingston with questions as well. *IF YOU HAVE A LIFE THREATENING EMERGENCY, CALL 911. FOR NON-LIFE THREATENING ISSUES, PLEASE CALL DR. LANG OFFICE FIRST. A PHYSICIAN IS INSIDE [employer] SALES 10/02. Incision/Dressing Care: May shower tomorrow, Incision dressing is waterproof. Do not soak in water, but shower is ok. Keep the incision (smyth) dressing clean and dry. If the incision dressing gets soiled or wet underneath, change dressing to the dressing given to you by the hospital. (smyth dressing will turn black if drainage occurs) Remove incision dressing (smyth one) two weeks after surgery. ~Leave steri strips alone. ~They will fall off on their own. Do not have anyone else remove the incision dressing prior to the stated recommendation (2 weeks after surgery). ~If there are incision concerns, contact Dr. Rascon office. ~(Alina or Dr. Carrion may remove earlier if concerns arise) If incision site (smyth dressing) has drainage, call Dr. Rascon office, [phone]. ~Alina and Dr. Carrion may ask you to come into the office for further evaluation - Follow Up Care Current Providers and Referrals: Alina Carrion PA [Physician Remote Encoding Operations Supervisor] - Patient,NotPresent [Unknown] - As per Instructions
--- NOTE | 2017-11-21 15:00 | ASMTCMCOM ---
CM Note CM Note Notes: Pt medically stable for d/c to [facility], orders sent in [employer]. CLAIRE Eddy to call report. [place] [facility] transport scheduled by with a 16:30 pickup. Pt updated. Date Signed: 11/21/2017 02:59 PM Electronically Signed By:LOLA Calix
[2017-11-21 15:56] VITALS: BP 106/66
== END 2017-11-21 16:35 | DRG 469 ==
LOC: EDUNIT# → F3N 20:40 → OBSVTOIN 22:52
PROVIDERS: ADMIT Internal Medicine; ATTEND Internal Medicine
PROC: 0SR904Z Replacement of Right Hip Joint with Ceramic on Polyethylene Synthetic Substitute, Open Approach (ICD-10-PCS; principal; 2017-11-17 06:00)
DX: S72.001A Fracture of unspecified part of neck of right femur, initial encounter for closed fracture (principal); Y92.000 Kitchen of unspecified non-institutional (private) residence as the place of occurrence of the external cause; W18.30XA Fall on same level, unspecified, initial encounter; G93.40 Encephalopathy, unspecified; R33.9 Retention of urine, unspecified; G20 Parkinson's disease; E44.0 Moderate protein-calorie malnutrition; I10 Essential (primary) hypertension
CPT/HCPCS: 82607-90; 97116-GP; 97161-GP; 97166-GO; 97530-GP; 97535-GO; J0171; J0690; J1100; J1170; J1644; J1650; J1885; J2405; J2704; J2795; J3010

== ENCOUNTER 2019-01-14 02:21 | Observation (INO) | payer OTHER | END 2019-01-16 17:59 | disposition hospice, home (50) | LOC: F2N 01-15 15:49 ==